=== PATIENT | male | born 1960 | race Caucasian/White ===

== ENCOUNTER → 2017-05-22 14:05 | Outpatient (CLI) | payer BC, SELFPAY ==
--- NOTE | 2017-05-22 14:21 | XR_ITS ---
EXAM: XR lumbar spine min 4V HISTORY: ITS.REASON: LOW BACK PAIN ORDERING PHYSICIAN: Aleta Pham PATIENT AGE: 57 years COMPARISON: None FINDINGS: Dextroscoliosis measuring 8 degrees. Mild retrolisthesis of L3 of 4 mm. Degenerative disc disease L3-S1 with decrease in the disc spaces and small endplate osteophytes. No fracture or dislocation. No lytic or blastic change. 4 mm calcific density overlies right mid abdominal region may represent right renal stone. IMPRESSION: 1. Lumbar scoliosis with mild degenerative disc disease. 2. Right nephrolithiasis
--- NOTE | 2017-05-22 14:22 | XR_ITS ---
XR hip RT 2-3V w/pelvis HISTORY: ITS.REASON: LOW BACK PAIN,RT HIP PAIN ORDERING PHYSICIAN: Aleta Pham PATIENT AGE: 57 years COMPARISON: None FINDINGS: No fracture or dislocation is evident. No significant degenerative change. No lytic or blastic change. Unremarkable soft tissues IMPRESSION: Negative hip
== END ==
PROVIDERS: PCP Nurse Practitioner; Visit Provider Nurse Practitioner
DX: M54.5 Low back pain (principal); R20.9 Unspecified disturbances of skin sensation
CPT/HCPCS: 72110; 73502

== ENCOUNTER 2017-06-03 14:01 | Observation (INO) ==
[2017-06-03 14:18] LABS: Basophils # 0.1 K/mm3 (0-0.2); Basophils % 0.9 % (0.1-2.0); Eosinophils # 0.2 K/mm3 (0.0-0.4); Eosinophils % 2.8 % (0.1-12.0); Hematocrit 47.2 % (42.0-52.0); Hemoglobin 15.6 g/dL (14.1-18.0); Lymphocytes # 1.8 K/mm3 (0.7-4.5); Lymphocytes % 26.3 K/mm3 (10-50); Mean Corpuscular Volume 87.8 fl (80-94); Mean Platelet Volume 7.9 fl (7.4-10.4); Monocytes # 0.5 K/mm3 (0.1-1.0); Monocytes % 7.4 % (1.7-9.3); Neutrophils # 4.2 K/mm3 (1.8-7.8); Neutrophils % 62.6 % (37.0-80.0); Platelet Count 266 K/mm3 (142-424); Red Blood Count 5.38 M/mm3 (4.60-6.20); Red Cell Distribution Width 12.9 % (11.5-17.5); White Blood Count 6.7 K/mm3 (4.8-10.8)
[2017-06-03 14:34] LABS: Anion Gap 3.4 mEq/L (5-15); Blood Urea Nitrogen 17 mg/dL (7-18); Calcium 9.3 mg/dL (8.5-10.1); Carbon Dioxide 29 mmol/L (21.0-32.0); Chloride 102 mmol/L (98-107); Glucose 101 mg/dL (74-106); Potassium 3.9 mmoL/L (3.5-5.1); Sodium 134 mmol/L (136-145)
[2017-06-03 14:35] LABS: Alanine Aminotransferase 67 U/L (12-78); Albumin Level 3.9 gm/dL (3.4-5.0); Albumin/Globulin Ratio 1.1 (1.1-1.8); Alkaline Phosphatase 77 U/L (46-116); Aspartate Amino Transferase 27 U/L (15-37); Bilirubin,Total 0.6 mg/dL (0.2-1.0); Globulin 3.7 gm/dl (1.3-3.2); Total Protein,Serum 7.6 gm/dL (6.4-8.2)
[2017-06-03 14:45] LABS: Creatine Kinase 109 U/L (39-308)
--- NOTE | 2017-06-03 14:45 | Emergency Department Note ---
ED Disposition Clinical Impression: Chest pain, Hypertension, Hyperlipidemia Disposition: Still a Patient Condition on Discharge: Fair Referrals: Aleta Pham APRN [Primary Care Provider] - - Critical Care Critical Care Time: No Attestation: On 06/03/17, the high probability of a clinically significant, sudden or life threatening deterioration of the following system(s) required my full and direct attention, intervention and personal management. The time I documented below is in addition to time spent performing reported procedures but includes the following listed in this critical care notation. Medical Decision Making - Addison Inquiry Pt receiving controlled substance: No Addison was queried for this patient: No Vital Signs: 06/03/17 14:01 Temperature 98.0 F Temperature Source Oral Pulse Rate [Right Brachial] 75 Respiratory Rate 18 Blood Pressure [Right Arm] 151/89 Blood Pressure Mean [Right Arm] 109 Blood Pressure Source [Right Arm] Automatic Cuff Blood Pressure Position [Right Arm] Sitting 02 Sat by Pulse Oximetry 97 Oxygen Delivery Method Room Air - Lab Data Lab Results 06/03/17 14:05: WBC 6.7, RBC 5.38, Hgb 15.6, Hct 47.2, MCV 87.8, MCH 29.0, MCHC 33.0, RDW 12.9, Plt Count 266, MPV 7.9, Neut % (Auto) 62.6, Lymph % (Auto) 26.3 , [place] % (Auto) 7.4, Eos % (Auto) 2.8, Baso % (Auto) 0.9, Neut # (Auto) 4.2, Lymph # (Auto) 1.8, [place] # (Auto) 0.5, Eos # (Auto) 0.2, Baso # (Auto) 0.1 06/03/17 14:05: Sodium 134 L, Potassium 3.9, Chloride 102, Carbon Dioxide 29, Anion Gap 3.4 L, BUN 17, Creatinine 1.34 H, Estimated Creat Clear 79, Estimated GFR 55 L, Est GFR ( Amer) 67, Glucose 101, Calcium 9.3, Total Bilirubin 0.6, AST 27, ALT 67, Alkaline Phosphatase 77, Total Creatine Kinase 109, CK-MB ( CK-2) 1.8, CK-MB (CK-2) Rel Index 1.7, Troponin I < 0.02, Total Protein 7.6, Albumin 3.9, Globulin 3.7 H, Albumin/Globulin Ratio 1.1 06/03/17 14:05: D-Dimer < 100 06/03/17 14:05: B-Natriuretic Peptide < 5 Result diagrams: 06/03/17 14:05 06/03/17 14:05 Orders (Tests/Meds): ED MEDICATIONS Discontinued Medications Generic Name Dose Route Start Last Admin Trade Name Joseph PRN Reason Stop Dose Admin Aspirin 324 mg 06/03/17 14:08 06/03/17 14:10 Aspirin 81mg Chewable Tablet PO 06/03/17 14:09 324 mg ONCE ONE Administration ORDERS Category Date Time Status 12-lead EKG Request [ECG Request by /Lisette] Stat Y 06/03/17 14:01 Ordered - ECG Data Tracing #1 67 nsr , no acute. ECG initial impression date: 06/03/17 ECG initial impression time: 14:44 Tracing #2 ECG initial impression date: 06/03/17 Medical Decision Narrative: Patient remained chest pain-free with multiple risk factors discussed with Dr. Norris and was admitted for rule out MS and a cardiology consult. Chest Pain HPI - General Chief Complaint: Chest Pain Stated Complaint: chest pain Time Seen by Provider: 06/03/17 14:05 Mode of Arrival: Ambulatory Limitations: No Limitations Description of Symptoms (Recalled from ER Triage Doc. by RN): Pt reports pain on L side of chest intermittently x2 weeks. Pt reports today pain has been sharp and radiating down L arm. Pt reports has had tingling in his fingers on L hand today, states pain is worse with movement. - History of Present Illness HPI narrative: 57 years old white male with history of hypertension hyperlipidemia and tobacco use who presented to the ED with left-sided sharp chest pain radiating to the left upper extremity associated with tingling and numbness. He denies weakness nausea vomiting shortness of breath or palpitation. MD complaint: chest pain Onset (ago): hour(s) (7 hours) Duration: intermittent Activity at onset: during rest Pain location: left chest Severity: mild Severity scale (1-10): 2 Quality: sharp Pain radiation: LUE Relieving factors: nothing Exacerbating factors: nothing Context: recent illness Risk Factors for CAD: Hypertension, Hypercholesterolemia, Smoking Treatments prior to or on arrival for Cardiac Chest Pain: none - Related Data Home Medications Medication Instructions Recorded Confirmed Diclofenac Potassium [Diclofenac 50 mg PO TID 06/03/17 06/03/17 50mg Tab] Allergies Allergy/AdvReac Type Severity Reaction Status Date / Time No Known Allergies Allergy Verified 06/03/17 14:01 [facility] History I have reviewed the patient's past medical history: Yes Medical History: Denies:: Diabetes Mellitus Type 1, Diabetes Mellitus Type 2 - Social History Smoking Status: Never smoker Alcohol Intake: never - Psychiatric History Expresses thoughts of harming self/others: None Suicide Plan Description: No Plan ROS Obtained: Yes All systems reviewed & no additional complaints Physical Exam - General General appearance: alert, in no apparent distress - Head Head exam: atraumatic, normocephalic, normal inspection - Eye Eye exam: Present: normal appearance, PERRL, EOMI - ENT ENT exam: Present: normal exam, normal oropharynx, mucous membranes moist, TM's normal bilaterally, normal external ear exam - Neck Neck exam: Present: normal inspection, full ROM, trachea midline. Absent: meningismus, lymphadenopathy - Chest Chest inspection: Present: normal inspection, symmetric chest wall rise. Absent : tenderness - Respiratory Respiratory exam: Present: normal lung sounds bilaterally. Absent: respiratory distress - Cardiovascular Cardiovascular exam: Present: regular rate, normal rhythm. Absent: JVD - Abdominal Exam Abdominal exam: Present: soft, normal bowel sounds. Absent: distention, tenderness, guarding - Extremities Exam Extremities exam: Present: normal inspection, full ROM, normal capillary refill. Absent: calf tenderness - Back Exam Back exam: Present: normal inspection. Absent: tenderness - Neurological Exam Neurological exam: Present: alert, oriented X3, CN II-XII intact, normal gait, motor sensory deficit - Psychiatric Psychiatric exam: Present: normal affect, normal mood - Skin Skin exam: Present: warm, dry, intact, normal color - Lymphatic Lymphatic Findings: no adenopathy
--- NOTE | 2017-06-04 07:02 | History & Physical Report ---
*Admission Date: 06/03/17 *Chief complaint: Chest pain *History of present illness: 57-year-old male with history of hyperlipidemia presented to the emergency department after onset of left-sided chest pain described as sharp and occurring in the anterior left ribs and radiating into the left arm and down into the hand. Patient was at rest when symptoms started and symptoms lasted for "a few minutes". He denies shortness of breath and nausea but did feel a hot flash come over him radiating from the epigastrium up to his neck. He did not vomit. According to ER note patient claims he has been having episodes of this over the last 2 weeks. Patient told me he has never had symptoms like this before although I did review his office records and patient was in 1 year ago complaining of some pain radiating down the left arm. He tells me that was associated with chopping wood. Patient was admitted for rule out of myocardial infarction. He had 2 sets of negative enzymes that were spaced 2 hours apart. He has not had any further chest pain since presentation to the ER. He is told the nurses he wishes to go home. Risk factors for coronary artery disease include hyperlipidemia which is controlled, he is a former smoker who quit at the age of 51 but has at least a [id number] history of smoking, and there is a family history of vascular disease with aging. Patient does not have a diagnosis of hypertension as stated in the ER report [facility] History Medical History: Reports:: Hyperlipidemia Denies:: Cancer, Diabetes Mellitus Type 1, Diabetes Mellitus Type 2, Hypertension, Internal Pacemaker, MRSA Other Medical History: Reports: Sinus Problems Other Surgeries: No: Pacemaker Amputation: No Fractures: No - *Social History Educational Level: Completed High School Smoking Status: Former smoker Alcohol Intake: never Occupational Status: employed Housing: house Household Members: spouse - Psychiatric History Expresses thoughts of harming self/others: None Suicide Plan Description: No Plan *Family Hx:: Cancer, Diabetes, Hyperlipidemia Review of Systems - Review of Systems Review of systems:: pertinent systems reviewed and negative unless documented below Meds Home Medications Medication Instructions Recorded Confirmed Type Diclofenac Potassium [Diclofenac 50 mg PO TID 06/03/17 06/03/17 History 50mg Tab] Allergies Allergy/AdvReac Type Severity Reaction Status Date / Time No Known Allergies Allergy Verified 06/03/17 14:01 Exam Vital signs and Labs for Last 24 Hours: Temp Pulse Resp BP Pulse Ox 97.8 F 70 17 124/75 100 06/04/17 03:49 06/04/17 04:00 06/04/17 03:49 06/04/17 03:49 06/04/17 03:49 I & O for Last 24 hours: Intake & Output 06/01/17 06/02/17 06/03/17 06/04/17 11:59 11:59 11:59 11:59 Intake Total 795 / 795 Balance 795 / 795 Weight 216 lb 1 oz Narrative: Patient is awake and alert this morning. Pupils are reactive to light. Oropharynx is moist and clear. Neck is without carotid bruits. Lungs are clear to auscultation. Heart has a regular rate and rhythm without murmurs gallops or rubs. Abdomen is soft and nontender. Musculoskeletal exam reveals some mild tenderness along the left pectoral muscle. Neurologic exam does not reveal any deficits. H&P: Result - Labs Labs: Laboratory Results - last 24 hr 06/03/17 14:05: WBC 6.7, RBC 5.38, Hgb 15.6, Hct 47.2, MCV 87.8, MCH 29.0, MCHC 33.0, RDW 12.9, Plt Count 266, MPV 7.9, Neut % (Auto) 62.6, Lymph % (Auto) 26.3 , [place] % (Auto) 7.4, Eos % (Auto) 2.8, Baso % (Auto) 0.9, Neut # (Auto) 4.2, Lymph # (Auto) 1.8, [place] # (Auto) 0.5, Eos # (Auto) 0.2, Baso # (Auto) 0.1 06/03/17 14:05: Sodium 134 L, Potassium 3.9, Chloride 102, Carbon Dioxide 29, Anion Gap 3.4 L, BUN 17, Creatinine 1.34 H, Estimated Creat Clear 79, Estimated GFR 55 L, Est GFR ( Amer) 67, Glucose 101, Calcium 9.3, Total Bilirubin 0.6, AST 27, ALT 67, Alkaline Phosphatase 77, Total Creatine Kinase 109, CK-MB ( CK-2) 1.8, CK-MB (CK-2) Rel Index 1.7, Troponin I < 0.02, Total Protein 7.6, Albumin 3.9, Globulin 3.7 H, Albumin/Globulin Ratio 1.1 06/03/17 14:05: D-Dimer < 100 06/03/17 14:05: B-Natriuretic Peptide < 5 06/03/17 16:20: Troponin I < 0.02 Assessment and Plan (1) Chest pain Current visit: Yes Status: Acute Category: Medical Code(s): R07.9 - Chest pain, unspecified (2) Former smoker Current visit: Yes Status: Acute Category: Social Hx Code(s): Z87.891 - Personal history of nicotine dependence (3) Hyperlipidemia Current visit: Yes Status: Acute Category: Medical Code(s): E78.5 - Hyperlipidemia, unspecified - Assessment and plan all Dx Assessment and Plan for all problems:: 1. Patient will undergo Cardiolite stress test today. Cardiology has been consulted. If stress test is normal patient will be discharged home. If stress test is abnormal he will need cardiac catheterization.
--- NOTE | 2017-06-04 07:04 | Discharge Summary ---
General - General Admission date: 06/03/17 Discharge date: 06/04/17 HPI HPI: 57-year-old male with history of hyperlipidemia presented to the emergency department after onset of left-sided chest pain described as sharp and occurring in the anterior left ribs and radiating into the left arm and down into the hand. Patient was at rest when symptoms started and symptoms lasted for "a few minutes". He denies shortness of breath and nausea but did feel a hot flash come over him radiating from the epigastrium up to his neck. He did not vomit. According to ER note patient claims he has been having episodes of this over the last 2 weeks. Patient told me he has never had symptoms like this before although I did review his office records and patient was in 1 year ago complaining of some pain radiating down the left arm. He tells me that was associated with chopping wood. Patient was admitted for rule out of myocardial infarction. He had 2 sets of negative enzymes that were spaced 2 hours apart. He has not had any further chest pain since presentation to the ER. He is told the nurses he wishes to go home. Risk factors for coronary artery disease include hyperlipidemia which is controlled, he is a former smoker who quit at the age of 51 but has at least a 71-[id number] history of smoking, and there is a family history of vascular disease with aging. Patient does not have a diagnosis of hypertension as stated in the ER report Hospital Course Hospital Course: Erikaetnt was admitted and ruled of for MN with serial EKG and cardiac enzymes. ON June 04 he underwent cardiolite stress test which was negative for ischemia. He was discharged home after his negaative stress test. Objective Vital signs: Temp Pulse Resp BP Pulse Ox 97.8 F 70 17 124/75 100 06/04/17 03:49 06/04/17 04:00 06/04/17 03:49 06/04/17 03:49 06/04/17 03:49 DS: Diagnosis - Discharge Diagnosis (1) Chest pain Status: Acute (2) Former smoker Status: Acute (3) Hyperlipidemia Status: Acute Discharge Plan - Patient Discharge Instructions ACTIVITY: Continue current activity DIET: continue same diet Patient Instructions: DI for Chest Pain - Follow up Plan Follow up with: Aleta Pham APRN [Primary Care Provider] - 06/08/17 Disposition: Home, Self-Skilled Nursing Medications: Home Medications Medication Instructions Recorded Confirmed Type Diclofenac Potassium [Diclofenac 50 mg PO TID 06/03/17 06/03/17 History 50mg Tab] Pravastatin Sodium [Pravachol 40mg 40 mg PO DAILY 06/04/17 06/04/17 History Tablet] Tamsulosin HCl [Flomax 0.4mg 40 mg PO DAILY 06/04/17 06/04/17 History capsule] Prescriptions/Medication Reconciliation: Continue Tamsulosin HCl [Flomax 0.4mg capsule] 40 mg PO DAILY Pravastatin Sodium [Pravachol 40mg Tablet] 40 mg PO DAILY Diclofenac Potassium [Diclofenac 50mg Tab] 50 mg PO TID
--- NOTE | 2017-06-04 07:43 | Pharmacy Consult Notes ---
[facility] Pharmacy VTE Monitoring - Patient Demographics Admission date: 06/03/17 Report Date: 06/04/17 Time: 07:43 Allergies/Adverse Reactions: Patient Allergies No Known Allergies Allergy (Verified 06/03/17 14:01) Height: 1.83 m Weight: 98.004 kg Patient Problems: Current Active Problems Chest pain (Acute) Hypertension (Acute) Hyperlipidemia (Acute) Former smoker (Acute) - VTE Risk Labs: VTE Related Lab Results Hgb 15.6 g/dL (14.1-18.0) 06/03/17 14:05 Hct 47.2 % (42.0-52.0) 06/03/17 14:05 Plt Count 266 K/mm3 (142-424) 06/03/17 14:05 BUN 17 mg/dL (7-18) 06/03/17 14:05 Creatinine 1.34 mg/dL (0.70-1.30) H 06/03/17 14:05 Estimated Creat Clear 79 mL/min (0-300) 06/03/17 14:05 Was VTE Risk Assessment Performed: Yes VTE Score: 1 VTE Risk Level: Very Low Risk - Prophylaxis VTE Prophylaxis Ordered?: Yes Types of VTE Prophylaxis: TEDS Knee High Location of Applied Device: Bilateral Lower Extremeties - VTE Diagnosis Confirmed Treatment or plan recommended: Continue Current Treatment
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
[2017-06-04 15:39] VITALS: BP 127/76
== END 2017-06-04 17:42 | disposition home or self-care (01) ==
LOC: ER 14:01 → 2ND 14:01
PROVIDERS: ADMIT Internal Medicine Adolescent Medicine; ATTEND Internal Medicine Adolescent Medicine

== ENCOUNTER → 2017-06-26 09:44 | Outpatient (CLI) | payer BC, SELFPAY ==
[2017-06-26 10:35] VITALS: PULSE 68; PULSE 72
== END ==
PROVIDERS: Family Provider Family Medicine; PCP Nurse Practitioner; Visit Provider Nurse Practitioner
DX: R06.02 Shortness of breath (principal)
CPT/HCPCS: 94060; 94640; 94726; 94729

== ENCOUNTER → 2017-10-19 09:48 | Outpatient (CLI) | payer BC, SELFPAY | PROVIDERS: Family Provider Family Medicine; PCP Family Medicine; Visit Provider Nurse Practitioner | DX: M25.552 Pain in left hip (principal); M54.5 Low back pain; R20.9 Unspecified disturbances of skin sensation ==

== ENCOUNTER → 2017-10-24 13:20 | Outpatient (CLI) | payer BC, SELFPAY | PROVIDERS: Family Provider Family Medicine; PCP Family Medicine; Visit Provider Nurse Practitioner | DX: M25.552 Pain in left hip (principal) ==

== ENCOUNTER → 2017-10-29 15:30 | Outpatient (CLI) | payer BC, SELFPAY ==
--- NOTE | 2017-10-29 15:37 | XR_ITS ---
XR hip LT 2-3V w/pelvis HISTORY: ITS.REASON: LEFT HIP PAIN ORDERING PHYSICIAN: Aleta Pham PATIENT AGE: 57 years COMPARISON: None FINDINGS: No fracture or dislocation is evident. No significant degenerative change. No lytic or blastic change. Unremarkable soft tissues IMPRESSION: Negative hip
== END ==
PROVIDERS: PCP Nurse Practitioner; Visit Provider Nurse Practitioner
DX: M25.552 Pain in left hip (principal)
CPT/HCPCS: 73502

== ENCOUNTER → 2019-10-06 13:25 | Outpatient (CLI) | payer OTHER, SELFPAY ==
--- NOTE | 2019-10-06 13:34 | XR_ITS ---
PROCEDURE: XR CERVICAL SPINE 5V CLINICAL INDICATION: OSTEOARTHIRTIS OF SPIN W/ RADICULOPATHY, CERVICAL REGION Neck pain, right shoulder pain and tingling COMPARISON: No exams were available for comparison FINDINGS: There is kyphosis in the mid cervical spine. Degenerative disc disease is present at C3-C4 C4-C5 C5-C6 and C6-C7. There is 4 mm anterolisthesis of C4 on C5. Foraminal narrowing is present on the right at C3-C4 C4-C5 C5-C6 and to lesser degree at C6-C7 and on the left at C3-C4 C4-C5 and C5-C6 and C6-C7. There appears to be an old spinous process fracture of T1. Facet arthritic changes are noted the C3-C5. IMPRESSION: Cervical spondylosis with degenerative disc disease and facet arthritic changes with foraminal narrowing as described above. Dictated by: Ciaran Peter MD 10/06/2019 14:29 Electronically signed by Ciaran Peter MD in [place] 10/06/2019 14:29
== END ==
PROVIDERS: PCP Family Medicine; Visit Provider Family Medicine
DX: M47.22 Other spondylosis with radiculopathy, cervical region (principal)
CPT/HCPCS: 72050

== ENCOUNTER → 2019-10-20 14:20 | Outpatient (CLI) | payer OTHER, SELFPAY | PROVIDERS: PCP Family Medicine; Visit Provider Nurse Practitioner | DX: Z03.818 Encounter for observation for suspected exposure to other biological agents ruled out (principal) | CPT/HCPCS: U0003 ==

== ENCOUNTER → 2020-08-26 11:03 | Outpatient (CLI) | payer MEDICARE, SELFPAY ==
--- NOTE | 2020-08-26 11:13 | XR_ITS ---
PROCEDURE: XR CERVICAL SPINE 5V CLINICAL INDICATION: CERVICALGIA COMPARISON: CR XR CERVICAL SPINE 5V from 10/06/2019 FINDINGS: There is degenerative disc disease at C3-C4 C4-C5 C5-C6 and C6-C7 and C7-T1. There is slight reversal of the cervical lordosis at the C4-C5 level with 3 mm anterolisthesis of C4. Severe foraminal narrowing on the right at C3-C4 and C4-C5 with mild foraminal narrowing at C5-C6 and C6-C7. On the left there is foraminal narrowing at C3-C4 C4-C5 C5-C6 and C6-C7. Facet arthritic/hypertrophic changes are present at C3 through C7. IMPRESSION: Multilevel cervical spondylosis as described above. Overall not significantly changed. Dictated by: Ciaran Peter MD 08/26/2020 14:25 Ciaran Peter MD in [place] 08/26/2020 14:25
== END ==
PROVIDERS: PCP Family Medicine; Visit Provider Nurse Practitioner Family
DX: M54.2 Cervicalgia (principal)
CPT/HCPCS: 72050

== ENCOUNTER → 2020-09-20 15:23 | Outpatient (POV) | payer MEDICARE, SELFPAY | PROVIDERS: Visit Provider Nurse Practitioner Family | DX: Z00.00 Encounter for general adult medical examination without abnormal findings (principal) ==

== ENCOUNTER → 2020-09-23 13:36 | Outpatient (CLI) | payer MEDICARE, SELFPAY ==
--- NOTE | 2020-09-23 13:42 | XR_ITS ---
PROCEDURE: XR SHOULDER RT MIN 2V CLINICAL INDICATION: RT ARM NUMBNESS, ACUTE PAIN OF RT SHOULDER COMPARISON: No exams were available for comparison FINDINGS: No fracture or dislocation. No lytic or blastic change. There is normal mineralization. The joint spaces are well-preserved. No significant degenerative/arthritic changes. No erosive changes evident. Other findings:None. IMPRESSION: No acute findings. Dictated by: Yael Estrada 09/23/2020 15:31 Yael Estrada in [place] 09/23/2020 15:31
== END ==
PROVIDERS: PCP Family Medicine; Visit Provider Family Medicine
DX: M25.511 Pain in right shoulder (principal); R20.0 Anesthesia of skin
CPT/HCPCS: 73030

== ENCOUNTER → 2022-03-01 13:29 | Outpatient (CLI) | payer MEDICARE, SELFPAY ==
--- NOTE | 2022-03-01 13:44 | XR_ITS ---
FINAL REPORT CLINICAL HISTORY: LT HIP PAIN, no injury, present for a month. FINDINGS: Left hip Three views were obtained. There is no acute fracture or dislocation. There are mild degenerative changes of both hips. There is a presumed subchondral cyst or cysts in the superior left femoral head. No soft tissue abnormality is identified. IMPRESSION: Degenerative change as above. Reviewed, Interpreted and Dictated by Mazin Pacheco III, MD Transcribed by Jluieth Barahona Authenticated and [facility]
--- NOTE | 2022-03-01 13:44 | XR_ITS ---
FINAL REPORT CLINICAL HISTORY: RT RIB PAIN,LOW BACK PAIN W/LT SIDE SCIATICA, pain for a month, no known injury. FINDINGS: THORACIC SPINE Two views demonstrate no acute fracture. There are mild degenerative changes of the thoracic spine. Multilevel osteophytes are identified. There is mild to moderate degenerative change of the lumbar spine with rightward curvature. IMPRESSION: Degenerative changes as above. Reviewed, Interpreted and Dictated by Mazin Pacheco III, MD Transcribed by Julieth Barahona Authenticated and [facility]
--- NOTE | 2022-03-01 13:44 | XR_ITS ---
FINAL REPORT CLINICAL HISTORY: RT RIB PAIN for a month, no known injury. FINDINGS: 3 views of the right ribs were obtained. There are no rib fractures. There is no pleural fluid collection or pneumothorax. A single view of the chest demonstrates no acute cardiopulmonary process. IMPRESSION: Unremarkable right rib series. Reviewed, Interpreted and Dictated by Mazin Pacheco III, MD Transcribed by Fito Castañeda Authenticated and [facility]
== END ==
PROVIDERS: PCP Nurse Practitioner Family; Visit Provider Nurse Practitioner Family
DX: R07.81 Pleurodynia (principal); M54.42 Lumbago with sciatica, left side; M25.552 Pain in left hip
CPT/HCPCS: 71101; 72072; 73502

== ENCOUNTER 2022-04-12 08:49 | Outpatient (RCR) | payer MEDICARE, SELFPAY ==
--- NOTE | 2022-04-12 09:30 | HMH.PTOPEV ---
PT Outpatient Evaluation Rehab PT Outpatient Evaluation Start: 04/12/22 09:20 Freq: Status: Active Protocol: Document 04/12/22 09:20 KYLE (Rec: 04/12/22 09:30 KYLE [id number]) E-signed By Truong Whiting, PT Outpatient Therapy Subjective History Subjective History Pt reports h/o chronic LBP with intermittent right LE radicular s/s. Pt reports x3 lumbar spine sx's from 2012 to 2016, 'they removed bone to give it more space.' Pt reports h/o chronic left hip pain, with recent imaging revealing OA. Pt reports global left hip jt line pain, angela. w/prolonged standing. Chief Complaint Pain,Stiff,Paresthesia, Weakness Symptom Type Ache,Throb,Sharp,Dull,Numbness ,Tingling Symptoms Relieved By Nothing,OTC Meds Symptoms Aggravated By Standing,Bending/Stooping, Physical Activity,Lifting Prior Functional Limitations Lifting,Housework,Standing, Squatting,Bending/Stooping Current Functional Limitations Lifting,Housework,Standing, Squatting,Bending/Stooping Symptom Description Constant but Variable Level of pain today (0-10) 4 Pain scale - at its best (0-10) 3 Pain scale - at its worst (0-10) 8 Lumbopelvic Eval Posture Thoracic Spine Posture Standing Position Flattened Lumbar Spine Posture Standing Position Flattened Assistive device Assistive Devices None / NA Gait Observation General Gait Pattern Observation Antalgic Gait Palapation tenderness bilateral lumbar spinal tenderness Yes: 3/4 paraspinal tenderness Yes: 3/4 buttock tenderness Yes: 2/4 Lumbar/Sacral Palpation Findings Tenderness,Muscle Guarding Accessory Movement L-spine Vertebrae Accessory Movements [facility] [place] that Elicit Symptoms L3 bilateral L4 bilateral Range of Motion Lumbar Spine Active Flexion Range of 0-35 Motion (degrees) Lumbar Spine Active Extension Range of 0-30 Motion (degrees) Left Lumbar Spine Lateral Flexion Active 0-20 Range of Motion (degrees) Right Lumbar Spine Lateral Flexion 0-20 Active Range of Motion (degrees) Lumbar Spine ROM Limitations Soft Tissue Tightness,Pain Manual Muscle Test Bilateral Knee Extension Strength Grade 5 Normal Knee Flexion Strength Grade 5 Normal Hip Flexion Strength Grade 4 Good Hip Abduct
== END 2022-04-12 08:55 | disposition home or self-care (01) ==
LOC: PT 08:49
PROVIDERS: PCP Nurse Practitioner Family; Visit Provider Orthopaedic Surgery
DX: M54.50 Low back pain, unspecified (principal); M54.16 Radiculopathy, lumbar region; M16.12 Unilateral primary osteoarthritis, left hip
CPT/HCPCS: 97163

== ENCOUNTER 2022-08-08 09:32 | Day surgery (SDC) | payer MEDICARE, SELFPAY ==
[2022-08-08] VITALS (8 sets, daily range): BP systolic 104–152; BP diastolic 65–83; PULSE 62–71; RESP 14–18; TEMP 36.2–36.6; O2SAT 91–98; BMI 28.5
--- NOTE | 2022-08-08 10:10 | EXP.ANES.CKL ---
[facility] Disclaimer: The information contained in this section may have been updated after the patient was seen, as this information can be updated by other users. 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 current occupational exposures/hazards: No caffeine: No [facility] Anesthesia Checklist Patient Identification Patient Identification: Arm Band and Verbal (Name & ) Structural Data Admitted From: Home Planned Operative Procedure/s: Colonoscopy Consent for Planned Operative Procedure(s) Verified: Yes NPO Status Verified Time NPO: 00:00 Additional verifications Anesthesia Reactions: No Hx Blood Transfusions: No Blood Transfusion Reaction: No Airway Assessment C-Spine Mobility Assessed: Yes TMJ Mobility Assessed: Yes Dentition: Poor Dentition Neurological Assessment Level of Consciousness: Awake Hx Seizures: No Numbness or tingling in extremities: No Anesthesia Plan Anesthesia Risk discussed: Yes Anesthesia Plan: Verified ASA Class: II Anesthesia Type: MAC
--- NOTE | 2022-08-08 10:21 | HMH.SCOPE ---
Procedure: Date: 08/08/22 Patient Date of :: 1960 Procedure Performed:: Colonoscopy Indications:: Positive Cologuard Performing Provider:: Emile Newby MD Referring Provider:: . Sedation:: Monitored anesthesia care Procedure:: After informed consent was obtained the patient was taken to the endoscopy suite. Sedation ensued after the patient was transferred to the left lateral decubitus position. Pulse, blood pressure, and oxygen saturation were monitored throughout the procedure. Digital rectal exam revealed no significant abnormality. The colonoscope was placed in position. The entire colon was evaluated. The colonoscope was carefully removed and the patient was transferred to recovery in stable condition. Please see findings and specimens below for detail. Findings:: Bowel preparation moderate Moderate lack of relaxation Hemorrhoidal tag/cushions Polyp (see specimens) Specimens:: Complex lobulated sessile transverse colon polyp (cold snare) Recommendations:: Timing of repeat colonoscopy is pending pathology but likely be around 1 year with extended bowel preparation secondary to recent positive Cologuard, nature of polyp, moderate bowel preparation, and moderate lack of relaxation. Complications:: No immediate Estimated blood obtained (mL): 1
== END 2022-08-08 11:40 | disposition home or self-care (01) ==
PROVIDERS: PCP Nurse Practitioner Family; Visit Provider Surgery
PROC: 0DJD8ZZ Inspection of Lower Intestinal Tract, Via Natural or Artificial Opening Endoscopic (ICD-10-PCS; principal; 2022-08-08 10:30)
DX: R19.5 Other fecal abnormalities (principal); D12.3 Benign neoplasm of transverse colon
CPT/HCPCS: 45385; 88305; J2704

== ENCOUNTER 2023-04-02 13:15 | Emergency (ER) | payer MEDICARE, SELFPAY ==
[2023-04-02 13:55] VITALS: BP 136/78; PULSE 76; RESP 19; TEMP 36.8; O2SAT 99; BMI 29.1
--- NOTE | 2023-04-02 14:37 | ED_ITS ---
Discharge Plan Disposition Patient Disposition: Home, Self-Care Condition: Good Prescriptions Prescriptions: New doxycycline hyclate 100 mg capsule 100 mg PO BID Qty: 20 0RF No Action pravastatin 80 mg tablet 80 mg PO DAILY tamsulosin 0.4 mg capsule 0.4 mg PO DAILY omeprazole 20 mg capsule,delayed release(DR/EC) 20 mg PO DAILY colchicine 0.6 mg tablet 0.6 mg PO DAILY Referrals Follow up/Referrals: Anthony Wood MD [Primary Care Provider] - See instructions Activity Restrictions/Add. Instructions Additional Instructions/Restrictions: Follow up with your Family Doctor on Sunday or first part of next week to see if results are back and further treatement Take medication as prescribed Make sure to take as prescribed Seperate dose of Doxy with your Omeprazole by a couple hours Straight to ER if any life threatening symptoms Clinical Impressions Clinical Impression: Tick bite Qualifiers: Encounter type: initial encounter Site of tick bite: thigh Laterality: left Qualified Code(s): S70.362A - Insect bite (nonvenomous), left thigh, initial encounter; W57.XXXA - Bitten or stung by nonvenomous insect and other nonvenomous arthropods, initial encounter Instructions Patient Instructions: Protect Yourself from Tickborne Illnesses, How to Remove a Tick, Doxycycline Discharge ED Provider: Chantelle Summers [facility] General Stated complaint: tick bites Mode of Arrival: Ambulatory Source of Information: Patient Limitations: No Limitations Time Seen by Provider: 04/02/23 14:37 Description of Symptoms (Recalled from Triage Doc. by RN): PATIENT C/O TICK BITES TO LEFT CALF HEENT Symptoms (Recalled from RN notes): No Resp Symptoms (Recalled from RN notes): No Skin Symptoms (Recalled from RN notes): Yes MS Symptoms (Recalled from RN notes): No Functional Status (Recalled from RN notes): WNL History of Present Illness Provider Complaint: Patient states that he noticed a small black speck on his left leg States that he used a magnifying glass and noticed it was a small tick and he pulled it off not sure if he got the head or not but today he noticed it was red around it starting to look like a bullseye so he came in to get it checked States he also has a place on his back where he thinks he may have scratched one off Related Data Home Medications Medication Instructions Recorded Confirmed colchicine 0.6 mg tablet 0.6 mg PO DAILY 04/02/23 04/02/23 omeprazole 20 mg capsule,delayed 20 mg PO DAILY 04/02/23 04/02/23 release pravastatin 80 mg tablet 80 mg PO DAILY 04/02/23 04/02/23 tamsulosin 0.4 mg capsule 0.4 mg PO DAILY 04/02/23 04/02/23 Previous Rx's Medication Instructions Recorded doxycycline hyclate 100 mg capsule 100 mg PO BID #20 caps 04/02/23 Allergies Allergy/AdvReac Type Severity Reaction Status Date / Time No Known Allergies Allergy Verified 08/23/22 14:04 Worker's Comp Is this a Worker's Comp case?: No [facility] Disclaimer: The information contained in this section may have been updated after the patient was seen, as this information can be updated by other users. 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 current occupational exposures/hazards: No caffeine: No ROS Obtained: Yes All systems reviewed & no additional complaints except as documented and Yes Systems reviewed as appropriate & no additional complaints except as documented Constitutional Constitutional: Reports system reviewed and no additional complaints, except as documented and Reports as per HPI ENT Ears, Nose, Mouth, and Throat: Reports system reviewed and no additional complaints, except as documented and Reports as per HPI Cardiovascular Cardiovascular: Reports system reviewed and no additional complaints, except as documented and Reports as per HPI Respiratory Respiratory: Reports system reviewed and no additional complaints, except as documented and Reports as per HPI Gastrointestinal Gastrointestingal: Reports system reviewed and no additional complaints, except as documented and as per HPI Integumentary/Breasts Skin/Breast: Reports system reviewed and no additional complaints, except as documented and Reports as per HPI Comments: had tick bite on left leg now started to get red and starting to look like bullseye Physical Exam General General appearance: alert and in no apparent distress ENT ENT exam: Present mucous membranes moist Respiratory Respiratory exam: Present normal lung sounds bilaterally; Absent respiratory distress or wheezes Cardiovascular Cardiovascular exam: Present regular rate, normal rhythm and normal heart sounds Neurological Exam Neurological exam: Present alert, oriented X3 and normal gait Skin Skin exam: Present other (small area on left inner leg with small redness/bullseye looking rash after tick bite) Medical Decision Making Addison Inquiry Pt receiving controlled substance: No Addison was queried for this patient: No Vital Signs: 04/02/23 13:55 Temperature 98.3 F Temperature Source Oral Pulse Rate [Left Brachial] 76 Respiratory Rate 19 Blood Pressure [Left Arm] 136/78 Blood Pressure Mean [Left Arm] 97 Blood Pressure Source [Left Arm] Automatic Cuff Blood Pressure Position [Left Arm] Sitting 02 Sat by Pulse Oximetry 99 Oxygen Delivery Method Room Air
[2023-04-02 14:54] VITALS: BP 136/78; PULSE 76; RESP 19; TEMP 36.8; O2SAT 99
[2023-04-07 13:26] LABS: Lyme B. burgdorferi PCR Blood Negative (Negative)
== END 2023-04-02 15:11 | disposition home or self-care (01) ==
PROVIDERS: Emergency Provider Nurse Practitioner; PCP Family Medicine
DX: S70.362A Insect bite (nonvenomous), left thigh, initial encounter (principal); W57.XXXA Bitten or stung by nonvenomous insect and other nonvenomous arthropods, initial encounter; I10 Essential (primary) hypertension; E78.5 Hyperlipidemia, unspecified; Z87.891 Personal history of nicotine dependence
CPT/HCPCS: 87476; 99204; 99212; G0463

== ENCOUNTER 2023-05-24 11:15 | Outpatient (CLI) | payer MEDICARE, SELFPAY ==
--- NOTE | 2023-05-24 11:20 | XR_ITS ---
FINAL REPORT CLINICAL HISTORY: RT ELBOW and shoulder PAIN COMPARISON: None FINDINGS: RIGHT SHOULDER: 3 views of the right shoulder were obtained. There is no acute fracture or dislocation. The joint spaces are intact. Mild acromioclavicular degenerative changes present. There is no soft tissue abnormality. IMPRESSION: No acute fracture Mild acromioclavicular degenerative change. Reviewed, Interpreted and Dictated by Mazin Pacheco III, MD Transcribed by Ping Tirado Authenticated and . [facility]
--- NOTE | 2023-05-24 11:20 | XR_ITS ---
FINAL REPORT CLINICAL HISTORY: RT ELBOW PAIN COMPARISON: None FINDINGS: AP, oblique, and lateral views of the right elbow were obtained. There is no prior exam for comparison. There is no acute fracture or dislocation. Mild degenerative change is present in the elbow. There is a chronic calcification lateral to the humeral condyle. There is no joint effusion or other soft tissue abnormality. IMPRESSION: No acute osseous abnormality of the right elbow. Reviewed, Interpreted and Dictated by Mazin Pacheco III, MD Transcribed by Ping Tirado Authenticated and . [facility]
== END 2023-05-24 23:59 ==
LOC: LAB 11:17
PROVIDERS: PCP Nurse Practitioner; Visit Provider Nurse Practitioner
DX: M25.521 Pain in right elbow (principal)
CPT/HCPCS: 73030; 73080

== ENCOUNTER 2023-06-12 15:00 | Outpatient (RCR) | payer MEDICARE, SELFPAY | END 2023-06-12 16:00 | disposition home or self-care (01) | LOC: OT 15:00 | PROVIDERS: Visit Provider Nurse Practitioner | DX: M25.511 Pain in right shoulder (principal); M25.521 Pain in right elbow | CPT/HCPCS: 97010; 97014; 97110; 97140; 97165; G0283 ==

== ENCOUNTER 2023-09-13 11:32 | Outpatient (CLI) | payer MEDICARE, SELFPAY ==
--- NOTE | 2023-09-13 11:39 | MR_ITS ---
FINAL REPORT CLINICAL HISTORY: RIGHT SHOULDER PAIN. NKI. POSSIBLY PULLING INJURY. FEELS LIKE A NAIL IS IN HIS SHOULDER JOINT. LROM. PAIN INCREASES WITH USE. FINDINGS: Multiplanar MR imaging of the right shoulder was performed without contrast. Motion artifact on many of the images decreases the sensitivity. There is a partial-thickness articular surface tear of the infraspinatus tendon involving less than 50%. There is mild AC joint arthrosis. Small amount of fluid is seen in the subacromial/subdeltoid bursa. There is thickening of the joint capsule at the axillary recess consistent with adhesive capsulitis. The glenoid labrum is intact. The long head of the biceps tendon is intact. Small glenohumeral joint effusion is seen. There is no evidence of fracture or dislocation. The musculature is intact. There is no evidence of soft tissue mass. IMPRESSION: Partial-thickness articular surface tear of the infraspinatus tendon. Adhesive capsulitis. Reviewed, Interpreted and Dictated by Mazin Pacheco III, MD Transcribed by Julieth Barahona Authenticated and [facility]
== END 2023-09-13 23:59 | disposition home or self-care (01) ==
PROVIDERS: PCP Family Medicine; Visit Provider Nurse Practitioner
DX: M25.511 Pain in right shoulder (principal); S49.91XA Unspecified injury of right shoulder and upper arm, initial encounter
CPT/HCPCS: 73221

== ENCOUNTER 2024-10-14 15:00 | Outpatient (CLI) | payer MEDICARE, SELFPAY | END 2024-10-14 23:59 | disposition home or self-care (01) | LOC: RT 15:01 | PROVIDERS: PCP Family Medicine; Visit Provider Nurse Practitioner Family | DX: I49.1 Atrial premature depolarization (principal); I47.19 Other supraventricular tachycardia; I49.3 Ventricular premature depolarization; R94.31 Abnormal electrocardiogram [ECG] [EKG]; Z82.49 Family history of ischemic heart disease and other diseases of the circulatory system | CPT/HCPCS: 93270 ==

== ENCOUNTER 2024-11-05 11:39 | Outpatient (CLI) | payer MEDICARE, SELFPAY ==
--- NOTE | 2024-11-05 | CA_ITS ---
APPROVED REPORT Exam: Pharmacologic Technologist: Soco Garcia Stress Nurse: Muriel Echeverria Ht: 6 ft 0 in Wt: 196 lbs BSA: 2.11 m2 HR: 64 bpm BP: 117/79 mmHg Stress Test Details Test: Lexiscan HR Resting HR: 64 bpm Max Heart Rate (APMHR): 157.786420 bpm Max HR Achieved: 91 bpm Target HR (85% APMHR): 133.159886 bpm % of APMHR: 57.96 Recovery HR: 75 bpm BP Resting BP: 117.0/79.0 mmHg Max BP: 127.0/80.0 mmHg Recovery BP: 120.0/78.0 mmHg ECG Resting ECG: Sinus rhythm, no ectopy Stress ECG Conclusion Lungs CTA Symptoms: None Arrhythmias/Ectopy: None ST-T Changes: Less than 0.[address] segment changes. Conclusion: Non-diagnostic ECG/Lexiscan. Electronically signed by : Yen Mosher MD 11/05/2024 14:11:39
--- NOTE | 2024-11-05 12:00 | NM_ITS ---
APPROVED REPORT Exam: Nuclear Stress Test Indication: cp..soa Patient Location: Outpatient Stress Tech: Soco Garcia GA Tech:PEDRITO Orozco RT(R)(N) Ht: 6 ft 0 in Wt: 195 lbs HR: 63 bpm BP: 117/79 mmHg BSA: 2.11 m2 TID: 1.02 History: Chest pain, dyspnea Procedure: Patient received 0.4 mg of intravenous Lexiscan, resting heart rate 63 bpm, resting blood pressure 117/79 mmHg, with Lexiscan maximum heart rate achieved was 92 bpm which is 85 % of the maximum predicted heart rate and blood pressure was 122/71 mmHg. With Lexiscan, patient denied any complaint of chest pain. Cardiac Stress and Resting SPECT Images: Cardiac Stress and Resting SPECT images were obtained using technetium 99m Myoview 32.5 mCi stress and 10.54 mCi at rest. Resting and stress imaging in supine and prone positions demonstrate large sized, moderate, predominantly reversible perfusion defects in the anterior and inferior LV delaney. Gated imaging demonstrates normal global LV systolic function. LVEF is calculated at 58%. Conclusion: Large sized, moderate, predominantly reversible perfusion defects in the anterior and inferior LV delaney. Findings are suggestive of partial reversible ischemia. Gated imaging demonstrates normal global LV systolic function. LVEF is calculated at 58%. Electronically signed by : Yen Mosher MD 11/06/2024 00:40:18
[2024-11-05 13:38] VITALS: BP 117/79; PULSE 64; RESP 16
[2024-11-05] MEDS: ISOTOPE MYOVIEW (PER STUDY) 1 DOSE IV (14:13)
[2024-11-05] MEDS: SODIUM CHLORIDE 0.9% 10ML SYR (RAD ONLY) 10 ML IV ×2 (14:13)
--- NOTE | 2024-11-05 14:30 | CA_ITS ---
APPROVED REPORT EXAM: Comprehensive 2D, Doppler, and color-flow Echocardiogram Legal Editor: Rosana Alvarado RT(R) Ht: 6 ft 0 in Wt: 199lbs BSA: 2.13 BP: 126/74 mmHg Indications: chest pain 2D Dimensions EF AP4 69.50 % GL Strain -27.5 % M-Mode Dimensions RVDd 3.51 cm (0.9-2.6) LA Diam 3.11 cm (1.9-4.0) LVDd 4.52 cm (3.5-5.7) LVDs 3.38 cm (3.5-5.7) IVSd 0.80 cm (0.6-1.1) PWd 0.85 cm (0.6-1.1) EF (Teich) 49.90% FS 25.20% EDV (Teich) 93.40 mL ESV (Teich) 46.80 mL LV Diastology E Decel Time 200 (160-240 msec) E/A Ratio 1.3 Mitral Valve MV E Max Flavio. 75.0 (40-130 cm/s) MV A Velocity 57.0 (40-130 cm/s) E/A Ratio 1.31 MV PHT 59.0 ms Left Ventricle The left ventricle is normal size. Left ventricular systolic function is normal. The left ventricular ejection fraction is within the normal range. There is normal left ventricular wall thickness. There is normal LV segmental wall motion. The left ventricular diastolic function is normal. LVEF is 55% Right Ventricle The right ventricle is normal size. The right ventricular systolic function is normal. Atria The left atrium is mildly dilated. The right atrium is mildly dilated. There is no color Doppler evidence of interatrial shunt. Aortic Valve The aortic valve is mildly thickened. There is no hemodynamically significant aortic valvular stenosis. Trace aortic regurgitation is present. Mitral Valve The mitral valve is normal in structure. No evidence of mitral valve stenosis. Trace mitral regurgitation is present. Tricuspid Valve The tricuspid valve leaflets are thin and pliable. Mild tricuspid regurgitation. RVSP is normal. Pulmonic Valve The pulmonary valve is grossly normal in structure. Trace pulmonic valve regurgitation is present. Great Vessels The aortic root is normal in size. IVC is normal in size and collapses >50% with inspiration. Pericardium There is no pericardial effusion. Other Information Study Quality: Fair Conclusion Normal biventricular systolic function. Mild biatrial dilation. Mild TR. Electronically signed by : Yen Mosher MD 11/06/2024 00:13:49
== END 2024-11-05 23:59 | disposition home or self-care (01) ==
LOC: RAD 11:40
PROVIDERS: PCP Family Medicine; Visit Provider Nurse Practitioner Family
DX: I07.1 Rheumatic tricuspid insufficiency (principal); R94.31 Abnormal electrocardiogram [ECG] [EKG]; R00.2 Palpitations; R94.39 Abnormal result of other cardiovascular function study; Z82.49 Family history of ischemic heart disease and other diseases of the circulatory system
CPT/HCPCS: 78452; 93017; 93018; 93306; A9502; J2785

== ENCOUNTER 2024-12-03 08:51 | Day surgery (SDC) | payer MEDICARE, SELFPAY ==
[2024-12-03] VITALS (10 sets, daily range): BP systolic 105–143; BP diastolic 63–82; PULSE 45–73; RESP 14–18; TEMP 36.1–36.6; O2SAT 93–100; BMI 26.4
--- NOTE | 2024-12-03 07:10 | IR_ITS ---
APPROVED REPORT Patient Location: Outpatient PROCEDURES Left heart catheterization Left ventriculogram Selective coronary angiogram INDICATION Angina pectoris, Abnormal Myoview Informed consent was obtained prior to the procedure. COMPLICATIONS NONE Estimated Blood Loss: LESS THAN 10 ML TECHNIQUE One percent lidocaine used to anesthetize the right anterior aspect of the wrist. The right radial artery was accessed via the Seldinger technique. A 6 Green[place]ic sheath was placed in the right radial artery. 2.5 mg of Verapamil, 800 mcg of nitroglycerin, 1mg Lidocaine and 5000 U Heparin were given through the arterial sheath. The JL3 catheter was also used to perform left heart catheterization, left ventriculogram and selective coronary angiogram. At the end of the procedure the sheath was removed good hemostasis was achieved using Traclet band, patient was transferred to the postop holding area in stable condition. ANGIOGRAPHIC RESULTS The left main artery Normal The left anterior descending artery Has mild proximal and mid vessel 10% luminal regularities The circumflex artery Nondominant with 10% diffuse luminal regularities The right coronary artery Dominant with diffuse 10 to 20% luminal regularities The GERBER ventriculogram reveals Normal 65% The left ventricular end-diastolic pressure 10 mmHg IMPRESSION Mild diffuse luminal regularities as described above Normal ejection fraction Normal LVEDP PLAN 1. Medical management with risk factor modification Electronically signed by : Jimbo Greenwood MD 12/03/2024 10:50:56
[2024-12-03 09:20] LABS: Hematocrit 44.9 % (42.0-52.0); Hemoglobin 15.1 g/dL (14.1-18.0); Immature Granulocytes % 0.7 %; Mean Corpuscular HGB Conc 33.6 g/dL (31.8-35.4); Mean Corpuscular Hemoglobin 29.5 pg (27.0-31.2); Mean Corpuscular Volume 87.9 fl (80-94); Nucleated Red Blood Cells % 0 %; Platelet Count 224 K/mm3 (142-424); Red Blood Count 5.11 M/mm3 (4.60-6.20); Red Cell Distribution Width-SD 46.2 fL; White Blood Count 6.9 K/mm3 (4.8-10.8)
[2024-12-03 09:42] LABS: Anion Gap 17.0 mEq/L (5-15); Blood Urea Nitrogen 16 mg/dl (9-20); Calcium 9.5 mg/dl (8.4-10.2); Carbon Dioxide 25 mmol/L (22.0-30.0); Chloride 102 mmol/L (98-107); Creatinine Clearance Estimated 88 mL/min (50-200); Creatinine,Serum 1.10 mg/dl (0.66-1.25); Estimated Glomerular Filt Rate 68 ml/min (>60); GFR (African American) 82 ML/MIN (>60); Glucose 100 mg/dl (74-100); Potassium 4.0 mmoL/L (3.5-5.1); Sodium 140 mmol/L (136-145)
[2024-12-03] MEDS: LIDOCAINE 1% 10ML MDV 10 ML IJ (10:41)
[2024-12-03] MEDS: NITROGLYCERIN 800MCG/8ML SYR (CATH LAB) 800 MCG IA (10:41)
[2024-12-03] MEDS: 0.9 % SODIUM CHLORIDE 500 ML 25 ML IV (10:42)
[2024-12-03] MEDS: VERAPAMIL 2.5MG/ML 2ML VIAL 2.5 MG IV (10:42)
[2024-12-03] MEDS: HEPARIN 1,000 UNITS/ML 10ML VIAL (CATH LAB) 5000 UNIT IV (10:42)
[2024-12-03] MEDS: HEPARIN 1,000 UNITS/500ML NS (CATH LAB) 3000 UNIT IV (10:42)
[2024-12-03] MEDS: FENTANYL 100MCG/2ML VIAL 50 MCG IV (10:49)
[2024-12-03] MEDS: MIDAZOLAM HCL 1MG/ML 5ML VIAL 1 MG IV (10:49)
[2024-12-03] MEDS: IOPAMIDOL-370 (76%);100ML BOTTLE 50 ML IV (12:31)
== END 2024-12-03 13:17 | disposition home or self-care (01) ==
LOC: CATHLAB 08:53
PROVIDERS: PCP Family Medicine; Visit Provider Internal Medicine
PROC: 4A023N7 Measurement of Cardiac Sampling and Pressure, Left Heart, Percutaneous Approach (ICD-10-PCS; CPT 93452; principal; 2024-12-03 09:45)
DX: I25.119 Atherosclerotic heart disease of native coronary artery with unspecified angina pectoris (principal); R94.39 Abnormal result of other cardiovascular function study; R94.31 Abnormal electrocardiogram [ECG] [EKG]; R06.02 Shortness of breath; R00.2 Palpitations; I10 Essential (primary) hypertension; E78.49 Other hyperlipidemia; Z87.891 Personal history of nicotine dependence; Z79.82 Long term (current) use of aspirin; Z79.899 Other long term (current) drug therapy; Z82.49 Family history of ischemic heart disease and other diseases of the circulatory system
CPT/HCPCS: 80048; 85025; 93458; 99152; C1725; C1769; J1200; J1644; J2003; J3010; J7040; Q9967